=== PATIENT | male | born 1970 | race Two or more races ===

== ENCOUNTER 2018-10-02 02:14 | Emergency (ER) | payer OTHER ==
[~2018-10-02] VITALS: Ht 162.6 cm; Wt 85.3 kg
[~2018-10-02 02:14] MED LIST: JANUMET XR 1001 EACH; PNEU16DI2; ULTRACET PO
== END 2018-10-02 09:03 | disposition home or self-care (01) ==
LOC: ER 02:14
DX: K52.9 Noninfective gastroenteritis and colitis, unspecified (principal); E86.0 Dehydration

== ENCOUNTER 2019-10-27 13:56 | Outpatient (CLI) | payer OTHER | END 2019-10-27 13:58 | disposition home or self-care (01) | LOC: SONOGRAMA 13:56 | PROVIDERS: ATTEND Anesthesiology Pain Medicine | DX: M25.512 Pain in left shoulder (principal); M25.511 Pain in right shoulder ==

== ENCOUNTER 2019-12-18 09:09 | Emergency (ER) | payer OTHER ==
[~2019-12-18] VITALS: Ht 162.6 cm; Wt 79.4 kg
[2019-12-18] MEDS ORDERED: FARXIGA10 MG PO (09:42)
[2019-12-18] MEDS ORDERED: VALTREX1000 MG PO (09:54)
== END 2019-12-18 10:28 | disposition home or self-care (01) ==
LOC: ER 09:09
DX: A60.00 Herpesviral infection of urogenital system, unspecified (principal)

== ENCOUNTER 2020-10-08 08:40 | Day surgery (SDC) | payer OTHER ==
[~2020-10-08 08:40] MED LIST changes: +FARXIGA10 MG PO; +VALTREX1000 MG PO
== END 2020-10-08 14:45 | disposition home or self-care (01) ==
LOC: AMB-ENDOS 08:40
PROVIDERS: ATTEND Surgery
DX: K57.32 Diverticulitis of large intestine without perforation or abscess without bleeding (principal); Z20.822 Contact with and (suspected) exposure to COVID-19

== ENCOUNTER 2020-10-13 09:28 | Emergency (ER) | payer OTHER ==
[~2020-10-13] VITALS: Ht 165.1 cm; Wt 81.6 kg
== END 2020-10-13 19:26 | disposition home or self-care (01) ==
LOC: ER 09:28
DX: K57.30 Diverticulosis of large intestine without perforation or abscess without bleeding (principal); R10.32 Left lower quadrant pain; E86.0 Dehydration; Z03.818 Encounter for observation for suspected exposure to other biological agents ruled out

== ENCOUNTER 2021-06-14 12:54 | Emergency (ER) | payer OTHER ==
[~2021-06-14] VITALS: Ht 162.6 cm; Wt 83.9 kg
== END 2021-06-14 17:11 | disposition home or self-care (01) ==
LOC: ER 12:54
DX: A05.9 Bacterial foodborne intoxication, unspecified (principal); R07.89 Other chest pain; E86.0 Dehydration; R42 Dizziness and giddiness; I10 Essential (primary) hypertension; E11.65 Type 2 diabetes mellitus with hyperglycemia; Z79.84 Long term (current) use of oral hypoglycemic drugs

== ENCOUNTER 2021-12-24 12:25 | Outpatient (CLI) | payer OTHER | END 2021-12-24 12:48 | disposition home or self-care (01) | LOC: SONOGRAMA 12:25 | PROVIDERS: ATTEND Specialist/Technologist, Other Nephrology | DX: N18.30 Chronic kidney disease, stage 3 unspecified (principal); I12.9 Hypertensive chronic kidney disease with stage 1 through stage 4 chronic kidney disease, or unspecified chronic kidney disease ==

== ENCOUNTER 2023-03-19 08:43 | Outpatient (CLI) | payer OTHER | END 2023-03-19 08:58 | disposition home or self-care (01) | LOC: MRI 08:43 | DX: R51.9 Headache, unspecified (principal); E78.5 Hyperlipidemia, unspecified; E11.65 Type 2 diabetes mellitus with hyperglycemia | CPT/HCPCS: 70551 ==

== ENCOUNTER 2024-04-06 13:00 | Outpatient (CLI) | payer OTHER | END 2024-04-06 13:03 | disposition home or self-care (01) | LOC: TOM 13:00 | PROVIDERS: ATTEND Urology | DX: R10.2 Pelvic and perineal pain (principal) ==